=== PATIENT | female | born 1990 | race Caucasian/White ===

== ENCOUNTER 2020-09-17 06:50 | Inpatient (IN) ==
[2020-09-17 07:44] LABS: ABS Eosinophils 0.1 10^3/ul (0-0.6); ABS Lymphocytes 1.6 10^3/ul (1.0-4.8); ABS Monocytes 0.5 10^3/ul (0-0.8); ABS Neutrophils 3.8 10^3/ul (1.5-7.7); Eosinophil % 0.9 %; Hematocrit 32 % (35-47); Hemoglobin 10.8 g/dL (12.0-16.0); Lymphocyte % 26.4 %; Mean Corpuscular HGB Conc 34 g/dL (31-36); Mean Corpuscular Hemoglobin 26 pg (27-31); Mean Corpuscular Volume 75 fL (80-97); Mean Platelet Volume 8.3 fL (7.4-10.4); Nucleated Red Blood Cells % 0.1; Platelet Count 222 10^3/uL (150-450); Red Blood Count 4.19 10^6 /uL (3.70-4.87); Red Cell Distribution Width 16 % (10-15); White Blood Count 5.9 10^3/uL (3.5-10.8)
[2020-09-17] MEDS ORDERED: ceFOXitin 2 GM IVPREMIX 2 GM/50 ML BAG IVPB ONE (07:46)
[2020-09-17 08:09] LABS: Glucose 71 mg/dL (70-100)
[2020-09-17 08:21] LABS: Urine Appearance Clear; Urine Bilirubin Negative (Negative); Urine Blood Negative (Negative); Urine Color Yellow; Urine Glucose Negative (Negative); Urine Ketones Negative (Negative); Urine Nitrite Negative (Negative); Urine Protein Negative (Negative); Urine Specific Gravity 1.013 (1.010-1.030); Urine Urobilinogen Negative (Negative)
[2020-09-17] MEDS ORDERED: fentaNYL 100 mcg/2 ml 50 MCG/ML VIAL ONE (08:26)
[2020-09-17] MEDS ORDERED: Morphine PF AMP (0.5MG/ML) 5 MG/10 ML AMP ONE (08:26)
[2020-09-17] MEDS ORDERED: Carboprost Tromethamine 250 mcg 1 ml VIAL ONE (08:26)
[2020-09-17] MEDS ORDERED: diPHENhydraMINE IV 50 MG/ML 1 ml VIAL (BENADRYL) IV PRN (08:29)
[2020-09-17] MEDS ORDERED: Ondansetron 4 mg VIAL 2 MG/ML 2 ml VIAL IV PRN (08:29)
[2020-09-17] MEDS ORDERED: Naloxone 0.4 mg VIAL 0.4 mg/ml 1 ml VIAL IV PRN (08:29)
[2020-09-17 08:37] LABS: Urine Benzodiazepine Screen None Detected (None Detect); Urine Cannabinoids Screen None Detected (None Detect); Urine Opiates Screen None Detected (None Detect)
[2020-09-17] MEDS ORDERED: Oxytocin 10 UNITS/ML 1 ML VIAL ONE (08:54)
[2020-09-17] MEDS ORDERED: Acetaminophen IV 1 GM/100ML 1,000 MG/100 ML VIAL IVPB ONE (09:50)
[2020-09-17 09:52] LABS: Rubella Screen IgG Immune (Immune)
[2020-09-17] MEDS ORDERED: Glycerin ADULT 2.4 gm SUPP PR PRN (09:54)
[2020-09-17] MEDS ORDERED: Witch Hazel PAD JAR TOPICAL PRN (09:54)
[2020-09-17] MEDS ORDERED: Dibucaine 1% OINT 28.35 GM TUBE PR PRN (09:54)
[2020-09-17] MEDS ORDERED: Oxytocin in LR 20 UNITS/1,000 ML BAG IVPB SCH (10:00)
[2020-09-17] MEDS: Lactated Ringers 1000 ml BAG 1,000 ML IV SCH ×2 (11:42→21:06)
[2020-09-17] MEDS: Nicotine PATCH 14 MG/24 HR PATCH TRANSDERM SCH (11:55)
[2020-09-17 15:50] LABS: Hepatitis C Antibody Reactive (Negative)
[2020-09-18] MEDS: Lactated Ringers 1000 ml BAG 1,000 ML IV SCH (04:54)
[2020-09-18] MEDS: Nicotine PATCH 14 MG/24 HR PATCH TRANSDERM SCH (08:55)
[2020-09-18 11:45] LABS: ABS Lymphocytes 1.2 10^3/ul (1.0-4.8); ABS Monocytes 0.5 10^3/ul (0-0.8); ABS Neutrophils 5.8 10^3/ul (1.5-7.7); Eosinophil % 0.6 %; Hematocrit 29 % (35-47); Hemoglobin 9.4 g/dL (12.0-16.0); Lymphocyte % 16.2 %; Mean Corpuscular HGB Conc 33 g/dL (31-36); Mean Corpuscular Hemoglobin 25 pg (27-31); Mean Corpuscular Volume 76 fL (80-97); Mean Platelet Volume 8.1 fL (7.4-10.4); Platelet Count 206 10^3/uL (150-450); Red Blood Count 3.78 10^6 /uL (3.70-4.87); Red Cell Distribution Width 16 % (10-15); White Blood Count 7.6 10^3/uL (3.5-10.8)
[2020-09-18 12:54] LABS: Albumin 2.8 g/dL (3.2-5.2); Albumin/Globulin Ratio 0.8 (1-3); Calcium 8.6 mg/dL (8.6-10.3); EGFR African American 185.8 (>60); EGFR Non-African American 153.6 (>60); Globulin 3.5 g/dL (2-4); Potassium 4.1 mmol/L (3.5-5.0); Total Bilirubin 0.3 mg/dL (0.2-1.0); Total Protein 6.3 g/dL (6.4-8.9)
[2020-09-19] MEDS: Nicotine PATCH 14 MG/24 HR PATCH TRANSDERM SCH (08:54)
[2020-09-20 08:06] VITALS: BP 132/70
== END 2020-09-20 11:40 | disposition home or self-care (01) | DRG 540 ==
LOC: MCHOB 06:50
PROVIDERS: ADMIT Obstetrics & Gynecology; ATTEND Obstetrics & Gynecology